=== PATIENT | male | born 1955 | race Caucasian/White ===

== ENCOUNTER 2018-02-04 08:26 | Emergency (ER) | payer BC ==
[~2018-02-04] VITALS: Ht 177.8 cm; Wt 117.0 kg
[2018-02-04] MEDS ORDERED: IV NORMAL SALINE 1,000ML 1,000 ML IV SCH (08:48)
[2018-02-04 09:00] LABS: BASO % 0 % (0-3); EOS # 0.1 x10^3/uL (0.0-0.7); EOS % 1 % (0-3); HEMATOCRIT 48.3 % (39.0-53.0); HEMOGLOBIN 16.1 g/dL (13.0-17.5); LYMPH # 3.6 x10^3/uL (1.0-4.8); LYMPH % 32 % (24-48); MEAN CORPUSCULAR HEMOGLOBIN 30 pg (25-35); MEAN CORPUSCULAR HGB CONC 33 g/dL (31-37); MEAN CORPUSCULAR VOLUME 89 fL (79-100); MONO # 0.6 x10^3/uL (0.0-1.1); MONO % 5 % (0-9); NEUT # 6.8 x10^3uL (1.8-7.7); NEUT % 61 % (31-73); PLATELET COUNT 208 x10^3/uL (140-400); RED BLOOD COUNT 5.44 x10^6/uL (4.30-5.70); RED CELL DISTRIBUTION WIDTH 13.5 % (11.5-14.5); WHITE BLOOD COUNT 11.2 x10^3/uL (4.0-11.0)
[2018-02-04 09:09] LABS: ALBUMIN 3.8 g/dL (3.4-5.0); ALBUMIN/GLOBULIN RATIO 1.1 (1.0-1.7); CALCIUM 8.7 mg/dL (8.5-10.1); CREATININE 1.1 mg/dL (0.7-1.3); GFR 68.1; POTASSIUM 4.3 mmol/L (3.5-5.1); TOTAL BILIRUBIN 0.6 mg/dL (0.2-1.0); TOTAL PROTEIN 7.4 g/dL (6.4-8.2)
[2018-02-04 09:18] LABS: BACTERIA,URINE 0 /HPF (0-FEW); BILIRUBIN,URINE NEG (NEG); CLARITY,URINE CLEAR; COLOR,URINE YELLOW; GLUCOSE,URINE NEG (NEG); NITRITE,URINE NEG (NEG); RBC,URINE 0 /HPF (0-2); SQUAMOUS EPITHELIAL CELL,UR OCC /LPF; UROBILINOGEN,URINE 0.2 mg/dL (0.2 mg/dL); WBC,URINE 0 /HPF (0-4)
[2018-02-04] MEDS ORDERED: KETOROLAC 30 MG/ML VIAL. IV ONE (09:20)
[2018-02-04] MEDS ORDERED: IOHEXOL 300 MG/ML 75 ML VIAL. IV ONE (09:30)
--- NOTE | 2018-02-04 10:24 | RAD ---
CT ABD PELV W/ IV CONTRST ONLY Indication: Low back pain, spasms, right lower quadrant pain Technique: Postcontrast CT imaging was performed of the abdomen and pelvis, multiplanar reconstruction images submitted. No oral contrast was given. One or more of the following individualized dose reduction techniques were utilized for this examination: 1. Automated exposure control 2. Adjustment of the mA and/or kV according to patient size 3. Use of iterative reconstruction technique. Comparison: None Findings: There is no abnormality of the limited visualized lung bases. No focal abnormality is identified liver, spleen, pancreas. There is no adrenal nodularity. Gallbladder is present without obvious intraluminal abnormality by CT. Both kidneys enhance, no hydronephrosis. Incidental note is made of retroaortic left renal vein. Evaluation of the bowel is limited without oral contrast, no bowel dilatation, free air, free fluid. Normal appendix is visualized. There is very mild sigmoid diverticulosis. There is prostatomegaly, mild indentation upon the base of the urinary bladder. There is mild nonspecific wall thickening of the urinary bladder. There is multilevel lumbar facet degenerative change. Lumbar vertebral body stature and AP alignment are preserved, mild spinal stenosis at L3-L4. There is a small umbilical fascial defect, no internal bowel. IMPRESSION: 1. There is no CT evidence of acute appendicitis, no significant inflammatory type change. There is very mild sigmoid diverticulosis. 2. There is suspected mild spinal stenosis L3-4. There is multilevel lumbar facet degenerative change. 3. There is prostatomegaly, prostate cancer screening advised if not already performed. There is appearance of mild urinary bladder wall thickening which may be accentuated by incomplete distention, cystitis not excludable by imaging. Electronically signed by: Marcello Montana MD (02/04/2018 10:20 AM) [id number]
[2018-02-04 10:35] VITALS: BP 112/75
[2018-02-04] MEDS ORDERED: CYCL-331 PO (10:47)
[2018-02-04] MEDS ORDERED: IBUP800T19 PO (10:47)
[2018-02-04] MEDS ORDERED: HYDR-3165 PO (10:47)
--- NOTE | 2018-02-04 10:48 | PHYS DOC ---
Past History Past Medical History: No Pertinent History Past Surgical History: No Surgical History Smoking: Non-smoker Alcohol Use: None Drug Use: None Adult General Chief Complaint Chief Complaint: ABDOMINAL PAIN HPI HPI Patient is a 62 year old male who presents with complaining of abdominal pain. Patient state he usually has bowel movements every day but did not have any bowel movement for 3 days and started to have discomfort in his abdomen 4 days ago. Patient complaining of intermittent episodes of right lower quadrant pain since yesterday as a sharp pain that just happens only with some especial position and movement as a sharp pain and rated his pain 9/10. Patient denies radiation of pain, nausea and vomiting, diarrhea or urinary symptoms, fever and chills, change of appetite. Patient denies history of injury or previous pain in the right lower quadrant. Review of Systems Review of Systems Constitutional: Denies fever or chills [] Eyes: Denies change in visual acuity, redness, or eye pain [] HENT: Denies nasal congestion or sore throat [] Respiratory: Denies cough or shortness of breath [] Cardiovascular: No additional information not addressed in HPI [] GI: Reports abdominal pain, denies nausea, vomiting, bloody stools or diarrhea [ ] : Denies dysuria or hematuria [] Musculoskeletal: Denies back pain or joint pain [] Integument: Denies rash or skin lesions [] Neurologic: Denies headache, focal weakness or sensory changes [] Endocrine: Denies polyuria or polydipsia [] All other systems were reviewed and found to be within normal limits, except as documented in this note. Current Medications Current Medications Current Medications Medications (Trade) Dose Ordered Sig/Frank Start Time Stop Time Status Last Admin Dose Admin Iohexol (Omnipaque 300 Mg/ml) 75 ml 1X ONCE 02/04/18 09:30 02/04/18 09:31 DC 02/04/18 09:26 75 ML Ketorolac Tromethamine (Toradol 30mg Vial) 30 mg 1X ONCE 02/04/18 09:20 02/04/18 09:21 DC 02/04/18 09:01 30 MG Orphenadrine Citrate (Norflex) 60 mg 1X ONCE 02/04/18 11:00 02/04/18 11:01 02/04/18 10:43 60 MG Sodium Chloride 1,000 ml @ 1,000 mls/hr Q1H 02/04/18 08:48 02/04/18 09:47 DC 02/04/18 09:01 1,000 MLS/HR Allergies Allergies Allergies Coded Allergies Type Severity Reaction Last Updated Verified No Known Drug Allergies 02/04/18 No Physical Exam Physical Exam Constitutional: Well developed, well nourished, mild distress, non-toxic appearance. [] HENT: Normocephalic, atraumatic, oropharynx moist, no oral exudates, nose normal. [] Eyes: PERRLA, EOMI, conjunctiva normal, no discharge. [] Neck: Normal range of motion, no tenderness, supple, no stridor. [] Cardiovascular:Heart rate regular rhythm, no murmur [] Lungs & Thorax: Bilateral breath sounds clear to auscultation [] Abdomen: Bowel sounds normal, soft, right lower quadrant with deep touching causes guarding without tenderness, no masses, no pulsatile masses. [] Skin: Warm, dry, no erythema, no rash. [] Back: No tenderness, no CVA tenderness. [] Extremities: No tenderness, no cyanosis, no clubbing, ROM intact, no edema. [] Neurologic: Alert and oriented X 3, normal motor function, normal sensory function, no focal deficits noted. [] Psychologic: Affect anxious, judgement normal, mood normal. [] Current Patient Data Vital Signs Vital Signs Date Time Temp Pulse Resp B/P (MAP) Pulse Ox O2 Delivery O2 Flow Rate FiO2 02/04/18 10:35 62 18 112/75 (87) 96 02/04/18 08:30 97.6 Room Air Lab Results Laboratory Tests Test 02/04/18 08:43 02/04/18 08:58 White Blood Count 11.2 x10^3/uL (4.0-11.0) H Red Blood Count 5.44 x10^6/uL (4.30-5.70) Hemoglobin 16.1 g/dL (13.0-17.5) Hematocrit 48.3 % (39.0-53.0) Mean Corpuscular Volume 89 fL (79-100) Mean Corpuscular Hemoglobin 30 pg (25-35) Mean Corpuscular Hemoglobin Concent 33 g/dL (31-37) Red Cell Distribution Width 13.5 % (11.5-14.5) Platelet Count 208 x10^3/uL (140-400) Neutrophils (%) (Auto) 61 % (31-73) Lymphocytes (%) (Auto) 32 % (24-48) Monocytes (%) (Auto) 5 % (0-9) Eosinophils (%) (Auto) 1 % (0-3) Basophils (%) (Auto) 0 % (0-3) Neutrophils # (Auto) 6.8 x10^3uL (1.8-7.7) Lymphocytes # (Auto) 3.6 x10^3/uL (1.0-4.8) Monocytes # (Auto) 0.6 x10^3/uL (0.0-1.1) Eosinophils # (Auto) 0.1 x10^3/uL (0.0-0.7) Basophils # (Auto) 0.0 x10^3/uL (0.0-0.2) Sodium Level 140 mmol/L (136-145) Potassium Level 4.3 mmol/L (3.5-5.1) Chloride Level 103 mmol/L (98-107) Carbon Dioxide Level 25 mmol/L (21-32) Anion Gap 12 (6-14) Blood Urea Nitrogen 16 mg/dL (8-26) Creatinine 1.1 mg/dL (0.7-1.3) Estimated GFR (Cockcroft-Gault) 68.1 BUN/Creatinine Ratio 15 (6-20) Glucose Level 111 mg/dL (70-99) H Calcium Level 8.7 mg/dL (8.5-10.1) Total Bilirubin 0.6 mg/dL (0.2-1.0) Aspartate Amino Transferase (AST) 42 U/L (15-37) H Alanine Aminotransferase (ALT) 111 U/L (16-63) H Alkaline Phosphatase 67 U/L (46-116) Total Protein 7.4 g/dL (6.4-8.2) Albumin 3.8 g/dL (3.4-5.0) Albumin/Globulin Ratio 1.1 (1.0-1.7) Lipase 190 U/L (73-393) Urine Collection Type Unknown Urine Color Yellow Urine Clarity Clear Urine pH 5.5 Urine Specific Robert Lee 1.020 Urine Protein Neg (NEG-TRACE) Urine Glucose (UA) Neg mg/dL (NEG) Urine Ketones (Stick) Neg mg/dL (NEG) Urine Blood Neg (NEG) Urine Nitrite Neg (NEG) Urine Bilirubin Neg (NEG) Urine Urobilinogen Dipstick 0.2 mg/dL (0.2 mg/dL) Urine Leukocyte Esterase Neg (NEG) Urine RBC 0 /HPF (0-2) Urine WBC 0 /HPF (0-4) Urine Squamous Epithelial Cells Occ /LPF Urine Bacteria 0 /HPF (0-FEW) EKG EKG [] Radiology/Procedures Radiology/Procedures [address] [address] IMAGING REPORT Signed PATIENT: GAYATRI HA ACCOUNT: [id number] : 1955 LOCATION: ER AGE: 62 SEX: M EXAM STATUS: REG ER ORD. PHYSICIAN: YAMEL POLLOCK MD REASON: right lower quadrant pain since yesterday PROCEDURE: CT ABD PELV W/ IV CONTRST ONLY CT ABD PELV W/ IV CONTRST ONLY Indication: Low back pain, spasms, right lower quadrant pain Technique: Postcontrast CT imaging was performed of the abdomen and pelvis, multiplanar reconstruction images submitted. No oral contrast was given. One or more of the following individualized dose reduction techniques were utilized for this examination: 1. Automated exposure control 2. Adjustment of the mA and/or kV according to patient size 3. Use of iterative reconstruction technique. Comparison: None Findings: There is no abnormality of the limited visualized lung bases. No focal abnormality is identified liver, spleen, pancreas. There is no adrenal nodularity. Gallbladder is present without obvious intraluminal abnormality by CT. Both kidneys enhance, no hydronephrosis. Incidental note is made of retroaortic left renal vein. Evaluation of the bowel is limited without oral contrast, no bowel dilatation, free air, free fluid. Normal appendix is visualized. There is very mild sigmoid diverticulosis. There is prostatomegaly, mild indentation upon the base of the urinary bladder. There is mild nonspecific wall thickening of the urinary bladder. There is multilevel lumbar facet degenerative change. Lumbar vertebral body stature and AP alignment are preserved, mild spinal stenosis at L3-L4. There is a small umbilical fascial defect, no internal bowel. IMPRESSION: 1. There is no CT evidence of acute appendicitis, no significant inflammatory type change. There is very mild sigmoid diverticulosis. 2. There is suspected mild spinal stenosis L3-4. There is multilevel lumbar facet degenerative change. 3. There is prostatomegaly, prostate cancer screening advised if not already performed. There is appearance of mild urinary bladder wall thickening which may be accentuated by incomplete distention, cystitis not excludable by imaging. Electronically signed by: Yogesh Montana MD (02/04/2018 10:20 AM) [email or web address] DICTATED AND SIGNED BY: YOGESH MONTANA MD DATE: 02/04/18 1015 CC: KECIA CARDOZA MD; YAMEL POLLOCK MD ~ Course & Med Decision Making Course & Med Decision Making Pertinent Labs and Imaging studies reviewed. (See chart for details) Evaluation of patient in ER showed 62-year-old male patient with complaining of intermittent episodes of right lower quadrant pain for several days that only happens with special movements. Patient had unremarkable physical exam and vital sign and CT of abdomen and pelvis except for accidental finding of diverticulosis and spinal stenosis. Patient treated with Toradol and Norflex and informed about the diagnosis of abdominal muscle pain that did not convinced him completely about the reason of his pain. Dragon Disclaimer Dragon Disclaimer This electronic medical record was generated, in whole or in part, using a voice recognition dictation system. Departure Departure: Disposition: 01 HOME, SELF-CARE (at 1045) Condition: IMPROVED Referrals: KECIA CARDOZA MD (PCP) Patient Instructions: Muscle Strain Additional Instructions: Drink plenty of liquids Follow-up with your primary care physician in 3-5 days Return to ER if not getting better Scripts Hydrocodone Bit/Acetaminophen (NORCO 5-325 TABLET) 1 Each Tablet 1 TAB PO PRN Q6HRS PRN for PAIN, #14 TAB 0 Refills Prov: YAMEL POLLOCK MD 02/04/18 Ibuprofen (IBUPROFEN) 800 Mg Tablet 1 TAB PO TID for pain, #30 TAB Prov: YAMEL POLLOCK MD 02/04/18 Cyclobenzaprine Hcl (CYCLOBENZAPRINE HCL) 10 Mg Tablet 1 TAB PO TID for pain, #20 TAB Prov: YAMEL POLLOCK MD 02/04/18 YAMEL POLLOCK MD Feb 04, 2018 10:48
[2018-02-04] MEDS ORDERED: ORPHENADRINE CITRATE 60 MG/2 ML VIAL. IV ONE (11:00)
== END 2018-02-04 10:58 | disposition home or self-care (01) ==
LOC: ER 08:26
DX: K57.30 Diverticulosis of large intestine without perforation or abscess without bleeding (principal); M48.061 Spinal stenosis, lumbar region without neurogenic claudication
CPT/HCPCS: 36415; 74177; 80053; 81001; 83690; 85025; 96374; 96375; 99284; J1885; J2360; Q9967; J7030